=== PATIENT | male | born 1960 | race Caucasian/White ===

== ENCOUNTER 2016-04-28 09:56 | Emergency (ER) | payer MEDICARE ==
--- NOTE | 2016-04-28 10:49 | ERNOTE ---
Medical Problem HPI - Narrative Date of Service: 04/28/16 - General Chief Complaint: General Assessment Time Seen by Provider: 04/28/16 10:26 Source: patient, RN notes reviewed Exam Limitations: no limitations - Immun/Allergies/Home Medications Immunizations: IMMUNIZATION HX Immunizations Up to Date No History of Influenza Vaccine No Hx Pneumococcal Vaccination No Allergies/Adverse Reactions: Allergies No Known Allergies Allergy (Unverified 04/28/16 10:14) Home Medications: HOME MEDICATIONS Carisoprodol [Soma] 350 mg PO TID 04/28/16 [Last Taken Unknown] Diazepam 10 mg PO BID 04/28/16 [Last Taken Unknown] Temazepam [Restoril] 30 mg PO DAILY 04/28/16 [Last Taken Unknown] Trazodone HCl [Oleptro ER] 300 mg PO DAILY 04/28/16 [Last Taken Unknown] - History of Present History Narrative: 55 y/o male ambulatory to the ED for ongoing pain in his right chest that began after a fall 3 weeks ago. He was working in his wood shop at home when he tripped and fell. He also hit his head and face, and he reports having a LOC of unknown duration. He is not having headaches, vomiting, or any other signs of a worsening head injury. He has intermittent, poorly localized pain in the right anterior and posterior ribs. This only occurs with coughing and deep breathing. He has a history of back surgery and has an implanted pain pump. The pump administers Dilaudid and another medication that he is unsure of the name of. His friends and family have been telling him that he should "get this checked out" so he decided to come in today. Review of Systems - Review of Systems Constitutional: Present: fatigue. Absent: fever, chills, malaise EYE: Absent: blurred vision, vision changes ENT: Present: no symptoms reported Respiratory: Present: cough. Absent: shortness of breath, wheezing Cardiology: Absent: palpitations, edema Gastrointestinal/Abdominal: Absent: nausea, vomiting, abdominal pain Genitourinary: Present: no symptoms reported Musculoskeletal: Present: muscle pain. Absent: back pain, neck pain, joint pain , joint swelling Neurological: Absent: headache, dizziness/light-headedness, weakness Endocrine: Present: no symptoms reported Hematologic/Lymphatic: Present: no symptoms reported Psych: Present: no symptoms reported - Patient's Past Medical History Patient History - Medical: Chronic Pain Patient History - Cardiac/Respiratory: No pertinent hx Patient History - Cancer: No Hx of Cancer Patient History - Surgical Procedures: Back Surgery - with implanted pain pump Patient History - Other: None - Social History Living Situations: other Abuse History: No History of abuse Psych History: No pertinent hx Smoking Status: Former smoker Have you smoked in the past 12 months: Yes - quit 68 days ago Alcohol Use: none Drug Use: none - Immunizations Immunizations Up to Date: No Hx Pneumococcal Vaccination: No History of Influenza Vaccine: No Physical Exam - Physical Exam General Appearance: Present: wd/wn, alert, no apparent distress, other - answers cell phone during exam Eye Exam: Normal inspection: bilateral Neck: Present: normal inspection, nontender, supple, full range of motion Respiratory: Present: no respiratory distress, normal breath sounds, no accessory muscle use, chest nontender, lungs clear Cardiovascular/Chest: Present: regular rate, rhythm, no murmur, normal peripheral pulses Neurological Exam: Present: alert, oriented, normal mood/affect, no motor/ sensory deficits Skin Exam: Present: normal color, warm/dry ED Progress - Vital Signs Patient's Vital Signs:: I have reviewed the patient's vital signs. Vital Signs: Vital Signs 04/28/16 10:04 Temperature 36.9 C Pulse Rate 106 H Respiratory 14 Rate Blood Pressure 117/77 O2 Sat by Pulse 96 Oximetry - X-Ray X-Ray #1 X-Ray: ribs Interpretation: Reviewed by me X-ray Comments: Technique: Ribs Unilateral RT * Findings: There is no identifiable displaced rib fracture seen. In the region of interest however there is a focal airspace consolidative process within the lung parenchyma. This could represent a lung contusion given history of fall and trauma. Alternatively pneumonia may appear similar. Clinical correlation. This is within the right upper lobe. Degenerative changes are identified. No pneumothorax appreciated. IMPRESSION: 1. No identifiable displaced rib fracture however airspace consolidative process within the right upper lobe lateral aspect could represent contusion given mechanism of injury or pneumonia. Electronically signed by Jesse So M.D.. - Progress/Reassessment Chief Complaint: General Assessment Progress:: Unchanged Plan - Plan Plan: Discussed xray results (patient again answers his phone during conversation), clinical presentation not consistent with pneumonia as patient has not felt ill or had fevers, does have a cough but this is chronic and reported to be not worse than his usual, pain likely d/t pulmonary contusion, discussed f/u for worsening symptoms. Departure - Departure Clinical Impression: Fall at home Qualifiers: Encounter type: initial encounter Qualified Code(s): W19.XXXA - Unspecified fall, initial encounter; Y92.099 - Unspecified place in other non-institutional residence as the place of occurrence of the external cause Pulmonary contusion Qualifiers: Encounter type: initial encounter Laterality: right Qualified Code(s): S27.321A - Contusion of lung, unilateral, initial encounter Disposition: Home self-care Condition: Good Instructions: Pulmonary Contusion, [id number] Additional Instructions: Continue your routine medications Follow up for fever, worsening cough, increasing pain or other concerns
[2016-04-28 11:10] VITALS: BP 114/77
== END 2016-04-28 11:34 | disposition home or self-care (01) ==
LOC: ER 09:56
DX: S27.321A Contusion of lung, unilateral, initial encounter (principal); Z87.891 Personal history of nicotine dependence; Z97.8 Presence of other specified devices; W19.XXXA Unspecified fall, initial encounter; Y92.099 Unspecified place in other non-institutional residence as the place of occurrence of the external cause

== ENCOUNTER 2016-05-05 15:19 | Emergency (ER) | payer MEDICARE ==
[2016-05-05 15:35] VITALS: BP 114/69
[2016-05-05 15:59] LABS: Hematocrit 36.1 % (42.0-52.0); Hemoglobin 11.9 gm/dL (13.5-18.0); Mean Cell Volume 84.7 fl (78-100); Mean Corpuscular Hemoglobin 27.9 pg (27-31); Mean Platelet Volume 8.8 fl (6.0-9.5); Neutrophil % 82.1 % (42-75.0); Platelet Count 403 K/mm3 (150-450); Red Blood Count 4.26 M/mm3 (4.7-6.0); Red Cell Distribution Width 12.6 % (11.5-14.0); White Blood Count 14.6 K/mm3 (4.0-10.5)
[2016-05-05 16:12] LABS: Albumin * 2.4 gm/dl (3.4-5.0); Anion Gap 12.5 mmol/L (6.8-13.8); BUN/Creatinine Ratio 8.8 (9.0-21.6); Bilirubin, Total 0.4 mg/dL (0.0-1.1); Ca. Corrected For Albumin 9.6 mg/dL (8.4-10.2); Calcium * 8.6 mg/dL (7.9-10.9); Carbon Dioxide 30.3 mmol/L (24-32.6); Potassium 3.8 mmol/L (3.4-4.6); Total Protein 8.3 gm/dL (6.2-8.2)
--- NOTE | 2016-05-05 16:17 | ERNOTE ---
Medical Problem HPI - Narrative Date of Service: 05/05/16 - General Chief Complaint: General Assessment Time Seen by Provider: 05/05/16 16:00 Source: patient Exam Limitations: no limitations - Immun/Allergies/Home Medications Immunizations: IMMUNIZATION HX Immunizations Up to Date Yes History of Influenza Vaccine No Hx Pneumococcal Vaccination No Allergies/Adverse Reactions: Allergies No Known Allergies Allergy (Verified 05/05/16 15:36) Home Medications: HOME MEDICATIONS Carisoprodol [Soma] 350 mg PO TID 04/28/16 [Last Taken Unknown] Diazepam 10 mg PO BID 04/28/16 [Last Taken Unknown] Temazepam [Restoril] 30 mg PO DAILY 04/28/16 [Last Taken Unknown] traZODone HCL [Oleptro ER] 300 mg PO DAILY 04/28/16 [Last Taken Unknown] - History of Present History Narrative: 55yo, M, reports being "knocked out" in his garage in [place] on appox 04/11 or 04/12/16. He tripped over an electrical cord, hitting his head/face and R. chest on the concrete floor. Does remember tripping, but did lose consciousness. Did have some L. jaw pain initially, but has since resolved. Denies any bruising post fall. Dtr is here with him today and states prior to injury had been sick with coughing, fever and acting confused. Fever improved, but continues to have intermittent chills, productive cough. Dtr states he does act confused at times. Since the fall has continued to have some R. chest wall pain and confusion. Did have intermittent JOSUE for the first week after fall, but denies any recent JOSUE. Denies any nausea or vomiting, SOB. States he was not evaluated while in [place], he is visiting as his dtr is due having a baby. They deny any CT of head since fall. Date (Duration): 04/12/16 Modifying Factors - (Improves): Present: medication - topical lidocaine (OTC), rest, other - heating pad Modifying Factors - (Worsens): Present: movement Review of Systems - Review of Systems Constitutional: Present: fever, fatigue. Absent: chills, weakness, malaise EYE: Absent: eye pain, blurred vision ENT: Absent: ear pain, nose congestion, nasal drainage, sore throat Respiratory: Present: cough - productive, wheezing - he denies wheezing, but dtr reports wheezing with coughing spell, other - at times discomfort to R. chest with deep breathing. Absent: shortness of breath Cardiology: Present: chest pain - R. anterior chest wall Gastrointestinal/Abdominal: Absent: nausea, vomiting, abdominal pain Musculoskeletal: Absent: back pain, joint pain, other - neck pain Skin: Absent: rash, other - bruising, swelling Neurological: Absent: headache, dizziness/light-headedness, seizure, weakness - Patient's Past Medical History Patient History - Medical: Chronic Pain Patient History - Cardiac/Respiratory: No pertinent hx Patient History - Cancer: No Hx of Cancer Patient History - Surgical Procedures: Back Surgery Patient History - Other: None - Social History Living Situations: home Abuse History: No History of abuse Psych History: No pertinent hx Smoking Status: Former smoker Have you smoked in the past 12 months: Yes Alcohol Use: none Drug Use: none - Immunizations Immunizations Up to Date: Yes Hx Pneumococcal Vaccination: No History of Influenza Vaccine: No Physical Exam - Physical Exam General Appearance: Present: wd/wn, alert, no apparent distress Eye Exam: Normal inspection: bilateral, PERRL: bilateral, EOMI: bilateral Ears, Nose, Throat: Present: normal ENT inspection, normal pharynx Neck: Present: normal inspection, nontender Respiratory: Present: no respiratory distress, normal breath sounds, no accessory muscle use. 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 Absent: cyanosis ED Progress - Date and Time Seen: Date and Time: 05/05/16 1700 PLease refer to paper charting for additional documentation. - Results and Orders Patient's Lab Results:: I have reviewed the patient's lab results. - Vital Signs Patient's Vital Signs:: I have reviewed the patient's vital signs. Vital Signs: Vital Signs 05/05/16 15:28 Temperature 37.8 C H Pulse Rate 118 H Respiratory 16 Rate Blood Pressure 114/69 O2 Sat by Pulse 93 Oximetry - X-Ray X-Ray #1 X-Ray: chest X-ray Comments: [facility] PATIENT RADIOLOGY STUDY REPORT Patient Patient Name:VI ISAAC Date: 1960 Sex: M Order Number: [id number] Unique Exam ID: [id number] Exam Requested: CXRPALAT - Chest PA Lateral * Date Scheduled: Study Priority: Requesting Service: Requesting Physician: Paco Card Reason for Exam: Radiological Report : Exam Date: 05/05/2016 15:39 Ordering Physician: Paco Card HISTORY: Right-sided chest pain with cough with deep breath for 2 weeks. History of smoking. TECHNIQUE: PA and lateral views of the chest were obtained. 3 images. COMPARISONS: None Available FINDINGS: Chest PA Lateral * Hyperinflated lung volumes. There is a peripheral round ovoid mass in the right upper lobe, likely centered at the anterior segment, which measures approximately 7 x 8 cm, with air-fluid level within the mass suggestive of cavitary changes. The lateral margin of the mass appears to abut the pleural surface. No pneumothorax or pleural fluid collections. Cardiac and mediastinal silhouettes are normal. Trachea is in normal position. Bones show degenerative changes of the spine. IMPRESSION: 1. Right upper lobe peripheral mass, with cavitary changes as above. Differential diagnosis includes pulmonary malignancy versus pulmonary abscess. Electronically signed by Flower Wang M.D.. Approved by: Approval Date: 05-05-2016 Approval Time: 04:01 PM THIS REPORT WAS RECEIVED FROM THE [email or web address] SYSTEM - Progress/Reassessment Chief Complaint: General Assessment Departure - Departure Clinical Impression: Abnormal CT scan of lung, Mass of right lung Disposition: [facility] Condition: Stable
[2016-05-05] MEDS ORDERED: LEVOFLOXACIN/D5W 750 MG/150 ML BAG IV SCH (16:45)
== END 2016-05-05 19:08 | disposition short-term general hospital (02) ==
LOC: ER 15:19
DX: R91.8 Other nonspecific abnormal finding of lung field (principal); Z72.0 Tobacco use; G89.29 Other chronic pain